=== PATIENT | male | born 1955 | race Caucasian/White ===

== ENCOUNTER 2020-04-05 01:11 | Emergency (ER) | payer OTHER, MEDICAID ==
[2020-04-05 04:27] VITALS: BP 122/82
== END 2020-04-05 04:29 | disposition home or self-care (01) ==
LOC: M ED 01:11
DX: F43.0 Acute stress reaction (principal); F20.9 Schizophrenia, unspecified; F17.200 Nicotine dependence, unspecified, uncomplicated; Z88.2 Allergy status to sulfonamides; Z88.8 Allergy status to other drugs, medicaments and biological substances